=== PATIENT | male | born 1970 | race Caucasian/White ===

== ENCOUNTER 2024-01-02 16:49 | Emergency (ER) | payer OTHER, SELFPAY ==
[2024-01-02 17:32] VITALS: BP 163/69; PULSE 83; RESP 16; TEMP 36.9; O2SAT 98; BMI 28.5
--- NOTE | 2024-01-02 18:11 | ED.WOUNDLAC ---
HPI - Wound/Laceration General Chief Complaint: Wound/Laceration Stated Complaint: left wrist laceration Time Seen by Provider: 01/02/24 17:53 Source: patient Mode of arrival: ambulatory History of Present Illness ED Provider: Martin JULES HPI narrative: 53-year-old male presents with laceration to left wrist status post cutting himself with a non powered proning saw. Teatanus UTD. No numbness, tingling fevers, chills. No other injuries sustained Related Data Previous Rx's ?Medication ?Instructions ?Recorded insulin aspart U-100 100 unit/mL 75 unit (0.75 mL) subcut .COMPLEX 05/26/20 subcutaneous solution (Novolog #70 mL U-100 Insulin aspart) simvastatin 20 mg tablet 20 mg PO DAILY #90 tabs 07/22/20 Allergies Allergy/AdvReac Type Severity Reaction Status Date / Time amoxicillin [AMOXICILLIN] Allergy Unknown HIVES Unverified 01/02/24 17:35 penicillin V Allergy Unknown hives Unverified 01/02/24 17:35 Review of Systems Review of Systems: Yes all other systems are reviewed and are negative [facility] Past Medical History Attestation statement: The following information was validated with the patient. Source: old records reviewed and nursing notes reviewed Medical History (Updated 01/02/24 @ 18:13 by MARY Poole) Type 1 diabetes mellitus without complications Social History Social History Do you have a plan to hurt others: No Plan Physical Exam Vital Signs: Vital Signs: Last Vital Signs Temp 98.5 F 01/02/24 17:32 Pulse 83 01/02/24 17:32 Resp 16 01/02/24 17:32 BP 163/69 H 01/02/24 17:32 Pulse Ox 98 01/02/24 17:32 O2 Del Method Room Air 01/02/24 17:32 BMI result Body Mass Index 28.5 Vital signs stable Appearance: Alert.? Oriented X3.? No acute distress.? Head: Normocephalic, atraumatic, no step-offs or deformities Eyes: Pupils equal, round and reactive to light.? CVS: ? Pulses normal.? Respiratory: No respiratory distress.? Abdomen: Soft and nontender.? Skin: Skin warm and dry.? Normal skin color.? Normal skin turgor.?+ 1 cm linear laceration overlying the ventral aspect of left wrist. Extremities: No lower extremity edema.? No calf ttp. 5/5 strength to bilateral upper and lower extremities Neuro: Oriented X 3.? No motor deficit.? No sensory deficit. CN 2-12 intact Course Reevaluation(s) Reevaluation #1: closed w/ dermabond w/o issues. Educated patient on diagnosis and treatment plan, answered all question, patient verbalizes understanding. At this time patient will be discharged home, advised to return with new or worsening symptoms. Educated on worrisome signs and symptoms and when to return. At this time I feel comfortable discharge home. Medical Decision Making Medical Decision Making MDM Narrative: 53-year-old male presents with accidental laceration to left wrist got it with a non powered pruning saw Physical exam ?+ 1 cm linear laceration overlying the ventral aspect of left wrist. History and physical exam concerning for simple laceration. No signs of arterial involvement, ligamentous injury, fracture dislocation Plan repair with glue, Boostrix Educated patient on diagnosis and treatment plan, answered all question, patient verbalizes understanding. At this time patient will be discharged home, advised to return with new or worsening symptoms. Educated on worrisome signs and symptoms and when to return. At this time I feel comfortable discharge home. Differential Diagnosis Differential Diagnoses: The differential diagnosis associated with the presentation includes History and physical exam concerning for simple laceration. No signs of arterial involvement, ligamentous injury, fracture dislocation Admission/Observation Consideration of admission/observation: Escalation of care including admission/observation considered unlikley Chronic Conditions Patient?s care impacted by: Diabetes Critical Care Time Critical Care Time Critical Care Time: No Discharge Plan Discharge Clinical Impression: Laceration Patient Disposition: Home, Self-Care Additional Instructions: Take your medications as prescribed. If you were prescribed antibiotics today, it is important that you take your medication to their entirety, do not skip any doses, do not finish them early. Follow-up with your primary care provider this week. Return to the emergency department with new or worsening symptoms. Such as fevers, chills, chest pain, shortness of breath, nausea, vomiting, dizziness, headache, vision changes, lethargy In case of emergency call 911 Return for any new or worsening symptoms such as redness, discharge from the site, pain, drainage Prescriptions: No Action insulin aspart U-100 [Novolog U-100 Insulin aspart] 100 unit/mL solution 75 unit subcut .COMPLEX Qty: 70 0RF Rx Instructions: 75 units subcut daily via pump; simvastatin 20 mg tablet 20 mg PO DAILY Qty: 90 1RF Referrals: Physician,Unknown J [Primary Care Provider] - 2 days Stand Alone Forms: Work/School Release Print Language: Pashto
[2024-01-02 18:27] VITALS: BP 163/69; PULSE 83; RESP 16; TEMP 36.9; O2SAT 98
--- OUTSIDE RECORDS SUMMARY | 2024-01-02 18:32 | XMS_ITS | Continuity of Care Document ---
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 Refills 0, Maintenance, 11/01/17 18:21:25 EDT, Aerosol, Route to Pharmacy Electronically, [id number], [facility]/pharmacy #[id number], Compound Start Date: 11/01/17 Status: Ordered Azithromycin 5 Day Dose Pack 250 mg oral tablet 1 pack/packet, By Mouth, Once, # 6 tablet, 0 Refills, Soft Stop, 11/01/17 18:21:30 EDT, Tablet Start Date: 11/01/17 Status: Ordered NovoLOG 100 units/mL subcutaneous solution = 20 units, Subcutaneous Injection, 2 times a day, # 10 mL, 0 Refills, Maintenance, 11/01/17 17:56:44 EDT, Solution Start Date: 11/01/17 Status: Ordered simvastatin 10 mg oral tablet 10 mg, 1, tablet, By Mouth, Daily at bedtime, # 30 tablet, Refills 0, Maintenance, 11/01/17 17:56:53 EDT Start Date: 11/01/17 Status: Ordered Patient Care team information Care Team Personnel Name: Hermilo Troy MD Position: Reference Physician Member Role: PCP Address: Address: [facility] [place] [address]- Care Team Related Persons Name: RAIN HAHN
--- OUTSIDE RECORDS SUMMARY | 2024-01-02 18:32 | XMS_ITS | Continuity of Care Document ---
Author Organization [facility] Bernard Tipton Dwayne lt Address [address] [place] [address]- Care Team Providers Care Chief Deputy Sheriff Name Role Phone Alfred Connors Primary Care Physi kyrie [place] [facility] [place](s): 01/14/23 - 01/21/23 [facility] Adult [address] [place] [address]- Encounter Diagnosis Encounter for annual physical exam(Discharge Diagnosis) - 01/14/23 Type 1 diabetes mellitus with hypercholesterolemia(Discharge Diagnosis) - 01/14/23 Type 1 diabetes, HbA1c goal < 7%(Discharge Diagnosis) - 01/14/23 Hypertension(Discharge Diagnosis) - 01/14/23 Hip pain, bilateral(Discharge Diagnosis) - 01/14/23 Urinary problem(Discharge Diagnosis) - 01/14/23 Obese class I(Discharge Diagnosis) - 01/14/23 Erectile dysfunction due to diabetes mellitus(Discharge Diagnosis) - 01/14/23 Attending Physician: Alfred Connors Allergies, Adverse Reactions, Alerts Substance Reaction Severity Status amoxicillin 1 Active penicillin Active 1Broke out in hives Immunizations Given and Recorded Vaccine Date Status Refusal Reason influenza virus vaccine, inactivated 01/30/22 Constantine rded influenza virus vaccine, inactivated 02/15/18 Constantine rded influenza virus vaccine, inactivated 01/17/16 Constantine rded tetanus-diphtheria toxoids (Td) 11/28/20 Recorded pneumococcal 23-valent vaccine 11/28/20 Recorded SARS-CoV-2 (COVID-19) mRNA-1273 vaccine 10/27/20 R ecorded SARS-CoV-2 (COVID-19) mRNA-1273 vaccine 09/29/20 R ecorded Medications Fish Oil 1200 mg oral capsule 1 capsule = 1,200 mg, By Mouth, 3 times a day, 0 Refills, Maintenance, 12/12/22 9:34:00 EDT, Partial fill upon patient request if the prescription is for a schedule II opioid drug. Start Date: 12/12/22 Status: Ordered glucosamine 750 mg oral tablet 2 tablet = 1,500 mg, By Mouth, Daily, 0 Refills, Maintenance, 12/12/22 9:34:00 EDT, Partial fill upon patient request if the prescription is for a schedule II opioid drug. Start Date: 12/12/22 Status: Ordered lisinopril 10 mg oral tablet 10 mg, 1, tablet, By Mouth, Daily, # 30 tablet, Refills 0, Maintenance, 01/14/23 8:14:00 EDT, Partial fill upon patient request if the prescription is for a schedule II opioid drug. Start Date: 01/14/23 Status: Ordered Men's Multi Gummies See Instructions, mens 50+ vit, 0 Refills, Maintenance, 12/12/22 9:34:00 EDT, Partial fill upon patient request if the prescription is for a schedule II opioid drug. Start Date: 12/12/22 Status: Ordered NovoLog Inj See Instructions, Subcutaneous Infusion 3 times a day before meals, 0 Refills, Maintenance, 01/14/23 12:32:00 EDT, Partial fill upon patient request if the prescription is for a schedule II opioid drug. Start Date: 01/14/23 Status: Ordered Saw [place] 450 mg oral capsule See Instructions, Take 1 capsule by mouth daily for urinary symptoms., # 1 capsule, 0 Refills, Maintenance, 01/14/23 9:19:00 EDT, Partial fill upon patient request if the prescription is for a schedule II opioid drug. Start Date: 01/14/23 Status: Ordered sildenafil 25 mg oral tablet 1 tablet = 25 mg, By Mouth, Daily, 1 hour before sexual activity, # 15 tablet, 3 Refills, Maintenance, 01/14/23 9:19:00 EDT, Tablet, Partial fill upon patient request if the prescription is for a schedule II opioid drug. Start Date: 01/14/23 Status: Ordered simvastatin 20 mg oral tablet 20 mg, 1, tablet, By Mouth, Daily at bedtime, # 90 tablet, Refills 0, Tot. Refills 0, Maintenance, 01/14/23 9:22:00 EDT, Do Not Route, Partial fill upon patient request if the prescription is for a schedule II opioid drug. Start Date: 01/14/23 Status: Ordered Vitamin D 48075 iu oral capsule 50,000 International_Units, By Mouth, Daily, Refills 0, Maintenance, 12/12/22 9:35:00 EDT, Partial fill upon patient request if the prescription is for a schedule II opioid drug. Start Date: 12/12/22 Status: Ordered Problem List Condition Confirmation Course Effective Dates Status Health Status Informant Urinary problem Confirmed Active Hypertension Confirmed Active Obese class I Confirmed Active Type 1 diabetes, HbA1c goal < 7% Confirmed Active Type 1 diabetes mellitus with hypercholesterolemia Confirmed Active Diagnosis Diagnosis Type Effective Dates Health Status Clinical Service Informant Encounter for annual physical exam Discharge Diagnosis 01/14/23 Type 1 diabetes mellitus with hypercholesterolemia Discharge Diagnosis 01/14/23 Type 1 diabetes, HbA1c goal < 7% Discharge Diagnosis 01/14/23 Hypertension Discharge Diagnosis 01/14/23 Hip pain, bilateral Discharge Diagnosis 01/14/23 Urinary problem Discharge Diagnosis 01/14/23 Obese class I Discharge Diagnosis 01/14/23 Erectile dysfunction due to diabetes mellitus Discharge Diagnosis 01/14/23 Vital Signs Most recent to oldest [Reference Range]: 1 Height 180 cm (01/14/23 8:03 AM) Weight 99.6 kg (01/14/23 8:03 AM) Oxygen Saturation [94-100 %] 98 % (01/14/23 8:03 AM) Pulse Rate [55-90 bpm] 71 bpm (01/14/23 8:03 AM) Body Mass Index [18.5-24.99 kg/m2] 30.74 kg/m2 *>HHI* (01/14/23 8:03 AM) Blood Pressure [90-138/55-84 mm Hg] 127/ 86mm Hg (01/14/23 8:03 AM) Blood pressure sites Arm, right (01/14/23 8:03 AM) Weight Obtained Via Standing scale (01/14/23 8:03 AM) Social History Social History Type Response Smoking Status Never (less than 100 in lifetime) entered on: 12/12/22 Sex Note * Ofelia Purvis: PERFORM, SIGN, VERIFY Event Display: Patient Education/Instruction Authored Date: [id number] [facility] *PEYMAN Klein Clinical Summary Name VAISHALI HAHN Age 52 Years 1970 PCP Alfred Connors PCP Visit Date 01/14/2023 07:58:00 Additional Instructions: Scheduled Appointments?? Future Appointments ?No Future Appointments Scheduled Follow-Up Instructions ?? With: Address: When: Alfred Connors Within 6 months Comments: routine f/u Diagnosis Pain in right hip; Type 1 diabetes mellitus without complications; Essential (primary) hypertension; Encounter for general adult medical examination without abnormal findings; Type 1 diabetes mellitus with other specified complication Medications: Please continue your medications until treatment is completed or stopped by your provider. Discuss any questions related to medications with your provider. Medications to Continue with No Changes These medications were not printed or sent to your pharmacy Ergocalciferol (Vitamin D 64659 iu oral capsule) 50,000 International Unit Oral Daily. Next Dose: Glucosamine (glucosamine 750 mg oral tablet) 2 tab(s) Oral Daily. Next Dose: Lisinopril (lisinopril 10 mg oral tablet) 1 tab(s) Oral Daily. Next Dose: Multivitamin With Minerals (Men's Multi Gummies) mens 50+ vit. Next Dose: [place]-3 Polyunsaturated Fatty Acids (Fish Oil 1200 mg oral capsule) 1 capsule Oral 3 times a day. Next Dose: Simvastatin (simvastatin 20 mg oral tablet) 1 tab(s) Oral Daily at Bedtime. Next Dose: Allergy Info:?? penicillin; amoxicillin Medications Given This Visit Future Orders ?Microalbumin Urine? Order Date:01/14/23?- Complete on or after?01/14/23 ?Lipid Panel? Order Date:03/15/23?- Complete on or after?03/15/23 Vital Signs Height 180 cm Weight 99.6 kg BMI 30.74 kg/m2 Blood Pressure 127 mm Hg/86 mm Hg Temperature Pulse Rate 71 bpm Respiratory Rate 02 Sat Mode of Delivery 98 %/ You can now view a summary of your hospital visit from the comfort of your home through a free online portal called [employer]. [employer] is a website that allows you to securely view your medical information including discharge summary, medications and follow-up visits. ??You can alsosend a secure electronic message to your doctor???s office to request appointments, renew medications or just ask a question. You can enroll at [email or web address] or register during your next office visit. Disclaimer:?? The information provided is of a general nature and is intended to be used in conjunction with the recommendations and advice of your health care practitioner. ??Every effort has been made to ensure that the information provided is accurate and complete at the time it is provided to you however, as your needs change, or, as new ??information becomes available, different or additional instructions may be required. If you have questions, please consult with your primary care provider or pharmacist, as appropriate. ??This information is not intended to serve as substitution for assessment and evaluation by a qualified health care provider. If you do not have a primary care provider, you may find a [facility] provider by calling [facility] [employer] Link at [phone]. [facility], in keeping with [facility] guidance, no longer requires face masks for staff, patientsor visitors in most situations. Similar to time spent indoors at other locations, there is the chance that you were exposed to respiratory viruses during your time with us (such as flu or COVID-19).? If you develop symptoms concerning for a viral respiratory infection, please seek testing (and treatment if indicated) from your medical provider or home test kit. For information about the plan of care including goals and instructions for your diagnosis, please see the patient education orders section of this document. Patient Education Materials?? The content of this educational material or handout may have been modified, supplemented, or adapted from its original content and format to support your individualized medical care. Getting a Flu Vaccination The flu (influenza) is caused by a virus that is easily spread. A flu vaccine is your best chance to avoid the flu. The vaccine is given in the form of a shot (injection) or a nasal spray. It???s best to get vaccinated each year when the flu vaccine is available in your area. This can be done at your health care provider???s office or a health clinic. Drugstores, senior centers, and workplaces often offer flu vaccinations, too. If you want to know when the vaccine is available or if you have questions about getting vaccinated, ask your health care provider. Flu facts ??? The flu vaccine will not give you the flu. ??? The flu is caused by a virus. It can???t be treated with antibiotics. ??? The flu can be life-threatening, especially for people in high-risk groups. ??? Influenza is not the same as ???stomach flu,?? the 24-hour bug that causes vomiting and diarrhea. This is most likely due to a GI (gastrointestinal) infection???not the flu. Flu symptoms Flu symptoms tend to come on quickly. Fever, headache, fatigue, cough, sore throat, runny nose, andmuscle aches are symptoms of the flu. Children may have upset stomach or vomiting, but adults usually don???t. Some symptoms, such as fatigue and cough, can last a few weeks. How a flu vaccine protects you There are many strains (types) of flu viruses. Medical experts predict which??strains are most likely to make people sick each year. Flu vaccines??are made from these strains. With the shot, inactivated (???killed?? ) flu viruses are injected into your body. With the nasal spray, live and weakened viruses are sprayed into your nose. The viruses in both vaccines cannot make you sick. But they do prompt the body to make antibodies to fight these flu strains. If you???re exposed to the same strains later in the flu season, the antibodies will fight off the virus. Your health care provider can tell you which type of flu vaccine is right for you. Who should get the flu vaccination? The Centers for Disease Control and Prevention (CDC) recommends that infants over the age of 6 months and all children and adults should get a flu shot every year. Some people are at an increased risk of developing serious complications from the flu. It's extremely important that these people get the vaccine. They include those with: ??? Long-term heart and lung conditions ??? Other serious medical conditions: ??? Endocrine disorders, like diabetes ??? Kidney or liver disorders ??? Weak immune system from disease or medical treatment, for example those with HIV or AIDS or those taking long-term steroids or medications to treat cancer ??? Blood disorders, such as sickle cell disease It is also very important that others that have an increased risk of being exposed to the flu or are around people with increased risk of complications get the vaccine. They are: ??? Health care providers and other staff that provide care in hospitals, nursing homes, home health, and other facilities ??? Household members, including children of people in high-risk groups Types of flu vaccines The flu vaccine is available as a shot and as a nasal spray. Your health care provider will recommend the vaccine that is best for you. ??? The shot is available in a few different forms. There is a high-dose vaccine for those over age65 and a vaccine for those with egg allergies. It's safe for most people. Talk with your provider if you have had: ??? A severe allergic reaction to a previous flu vaccine ??? Guillain-barre syndrome (a severe paralyzing condition) ??? The nasal spray is recommended for people from 2 to 49 years of age. It should not be given to adults who: ??? Are ??? Have weak immune systems ??? Have egg allergies ??? Will be in close contact with someone with a weak immune system ??? Have taken antiviral medication in the past 2 days ?? [id number] [employer]. [address] [place] [address], [place] [address]. All rights reserved. This information is not intended as a substitute for professional medical care. Always follow your healthcare professional's instructions. 4 Steps for Eating Healthier Changing the way you eat can improve your health. It can lower your cholesterol and blood pressure,and help you stay at a healthy weight. Your diet doesn???t have to be bland and boring to be healthy. Just watch your calories and follow these steps: 1. Eat fewer unhealthy fats ??? Choose more fish and lean meats instead of fatty cuts of meat. ??? Skip butter and lard, and use less margarine. ??? Pass on foods that have palm, coconut, or hydrogenated oils. ??? Eat fewer high-fat dairy foods like cheese, ice cream, and whole milk. ??? Get a heart-healthy cookbook and try some low-fat recipes. 2.??Go light on salt ??? Keep the saltshaker off the table. ??? Limit high-salt ingredients, such as soy sauce, bouillon, and garlic salt. ??? Instead of adding salt when cooking, season your food with herbs and flavorings. Try lemon, garlic, and onion. ??? Limit convenience foods, such as boxed or canned foods and restaurant food. ??? Read food labels and choose lower-sodium options. 3. Limit sugar ??? Pause before you add sugars to pancakes, cereal, coffee, or tea. This includes white and brown table sugar, syrup, honey, and molasses. Cut your usual amount by half. ??? Use non-sugar sweeteners. Stevia, aspartame, and sucralose can satisfy a sweet tooth without adding calories. ??? Swap out sugar-filled soda and other drinks. Buy sugar-free or low-calorie beverages. Remember water is always the best choice. ??? Read labels and choose foods with less added sugar. Keep in mind that dairy foods and foods with fruit will have some natural sugar. ??? Cut the sugar in recipes by 1/3 to 1/2. Boost the flavor with extracts like almond, vanilla, ororange. Or add spices such as cinnamon or nutmeg. 4. Eat??more fiber ??? Eat fresh fruits and vegetables every day. ??? Boost your diet with whole grains. Go for oats, whole-grain rice, and bran. ??? Add beans and lentils to your meals. ??? Drink more water to match your fiber increase. This is to help prevent constipation. ?? [id number] [employer]. [address] [place] [address], [place] [address]. All rights reserved. This information is not intended as a substitute for professional medical care. Always follow your healthcare professional's instructions. Prevention Guidelines, Men Ages 50 to 64 Screening tests and vaccines are an important part of managing your health. Health counseling is essential, too. Below are guidelines for these, for men ages 50 to 64. Talk with your healthcare provider to make sure you???re up-to-date on what you need. Screening Who needs it How often Alcohol misuse All men in this age group At routine exams Blood pressure All men in this age group Every 2 years if your blood pressure is less than 120/80 mm Hg; yearly if your systolic blood pressure is 120 to 139 mm Hg, or your diastolic blood pressure reading is 80 to 89 mm Hg Colorectal cancer All men in this age group Flexible sigmoidoscopy every 5 years, or colonoscopy every 10 years, or double- contrast barium enema every 5 years; yearly fecal occult blood test or fecal immunochemical test; or a stool DNA test asoften as your healthcare provider advises; talk with your healthcare provider about which tests arebest for you Depression All men in this age group At routine exams Type 2 diabetes or prediabetes All adults beginning at age 45 and adults without symptoms at any age who are overweight or obese and have 1 or more other risk factors for diabetes At least every 3 years Hepatitis C Men at increased risk for infection ??? talk with your healthcare provider At routine exams High cholesterol or triglycerides All men in this age group At least every 5 years HIV Men at increased risk for infection ??? talk with your healthcare provider At routine exams Lung cancer Adults age 55 to 80 who have smoked Yearly screening in smokers with 30 pack-year history of smoking or who quit within 15 years Obesity All men in this age group At routine exams Prostate cancer Starting at age 45, talk to healthcare provider about risks and benefits of digital rectal exam (PANDA) and prostate-specific antigen (PSA) screening1 At routine exams Syphilis Men at increased risk for infection ??? talk with your healthcare provider At routine exams Tuberculosis Men at increased risk for infection ??? talk with your healthcare provider Ask your healthcare provider Vision All men in this age group Ask your healthcare provider Vaccine Who needs it How often Chickenpox (varicella) All men in this age group who have no record of this infection or vaccine 2 doses; second dose should be given at least 4 weeks after the first dose Hepatitis A Men at increased risk for infection ??? talk with your healthcare provider 2 doses given at least 6 months apart Hepatitis B Men at increased risk for infection ??? talk with your healthcare provider 3 doses over 6 months; second dose should be given 1 month after the first dose; the third dose should be given at least 2 months after the second dose and at least 4 months after the first dose Haemophilus influenzae??Type B (HIB) Men at increased risk for infection ??? talk with your healthcare provider 1 to 3 doses Influenza (flu) All men in this age group Once a year Measles, mumps, rubella (MMR) Men in this age group through their late 50s who have no record of these infections or vaccines 1 or 2 dose; ask your healthcare provider Meningococcal Men at increased risk for infection ??? talk with your healthcare provider 1 or more doses Pneumococcal conjugate vaccine (PCV13)??and pneumococcal polysaccharide??vaccine??(PPSV23) Men at increased risk for infection ??? talk with your healthcare provider PCV13: 1 dose ages 19 to 65 (protects against 13 types of pneumococcal bacteria) ?? PPSV23: 1 to??2doses through age 64, or 1 dose at 65 or older (protects against 23 types of pneumococcal bacteria) Tetanus/diphtheria/ pertussis (Td/Tdap) booster All men in this age group Td every 10 years, or a one-time dose of Tdap instead of a Td booster after age 18, then Td every 10 years Zoster All men ages 60 and older 1 dose Counseling Who needs it How often Diet and exercise Men who are overweight or obese When diagnosed, and then at routine exams Sexually transmitted infection prevention Men at increased risk for infection ??? talk with your healthcare provider At routine exams Use of daily aspirin Men in this age group at risk for cardiovascular health problems At routine exams Use of tobacco and the health affects it can cause All men in this age group Every visit [address] [place] [address] [facility] ?? [phone] [employer]. [address] [place] [address]. All rights reserved. This information is not intended as a substitute for professional medical care. Always follow your healthcare professional's instructions. Patient Care team information Care Team Personnel Name: Alfred Connors Position: [facility] PCO Associate Professional Member Role: PCP Address: Address: [address] [facility] [place] [address]- Care Team Related Persons Name: RAIN HAHN
--- OUTSIDE RECORDS SUMMARY | 2024-01-02 18:32 | XMS_ITS | Continuity of Care Document ---
Author Organization [facility] Saeed Dwayne lt Address [address] [place] [address]- Care Team Providers Care Gunner'S Mate G Name Role Phone Alfred Connors Primary Care Physi kyrie [place] [facility] [place] 03/03/23 [facility] Adult [address] [place] [address]- Encounter Diagnosis Erectile dysfunction due to diabetes mellitus(Discharge Diagnosis) - 02/04/23 Allergies, Adverse Reactions, Alerts Substance Reaction Severity [...] mg, 1, tablet, By Mouth, Daily, # 90 tablet, Refills 1, Tot. Refills 1, Maintenance, 02/04/23 16:36:00 EDT, Route to Pharmacy Electronically, [facility]/pharmacy #[id number], Partial fill upon patient request if the prescription is for a schedule II opioid drug... Start Date: 02/04/23 Status: Ordered Men's Multi Gummies See Instructions, [...] drug. Start Date: 01/14/23 Status: Ordered Saw [place] 450 mg oral capsule See Instructions, Take [...] activity, # 15 tablet, 3 Refills, Maintenance, 02/04/23 16:36:00 EDT, Tablet, [facility]/pharmacy #[id number], Partial fill upon patient request if the prescription is for a schedule II opioid drug., 180, cm,... Start Date: 02/04/23 Status: Ordered simvastatin 20 mg oral tablet 20 mg, 1, tablet, By Mouth, Daily at bedtime, # 90 tablet, Refills 1, Tot. Refills 1, Maintenance, 02/04/23 16:36:00 EDT, Route to Pharmacy Electronically, [facility]/pharmacy #[id number], Partial fill upon patient request if the prescription is for a schedule II... Start Date: 02/04/23 Status: Ordered Vitamin D 70102 iu oral capsule 50,000 International_Units, By Mouth, [...] Effective Dates Health Status Clinical Service Informant Erectile dysfunction due to diabetes mellitus Discharge Diagnosis 02/04/23 Non-Specified Social History Social History Type Response Smoking Status Never (less than 100 in lifetime) entered on: 12/12/22 Sex Patient Care team information Care Team Personnel Name: Alfred Connors Position: [facility] PCO Associate Professional Member Role: PCP Address: Address: [address] [place] [address] [place], [place] [address] Care Team Related Persons Name: RAIN HAHN
--- OUTSIDE RECORDS SUMMARY | 2024-01-02 18:32 | XMS_ITS | Continuity of Care Document ---
Author Organization [facility] Brenard Tipton Dwayne Address [address] [place] [address]- Care Team Providers Care Oxyhydrogen Welder Name Role Phone Jericho Goyal DO Primary Care Physician [phone] Encounter [facility] Date(s): 08/28/23 - 09/04/23 [facility] Bernard Tipton Adult [address] [place] [address]- Encounter Diagnosis Essential hypertension(Discharge Diagnosis) - 08/27/23 Type 1 diabetes mellitus with hypercholesterolemia(Discharge Diagnosis) - 08/27/23 Type 1 diabetes, HbA1c goal < 7%(Discharge Diagnosis) - 08/27/23 BPH (benign prostatic hyperplasia)(Discharge Diagnosis) - 08/27/23 Obese class I(Discharge Diagnosis) - 08/27/23 Paresthesia(Discharge Diagnosis) - 08/28/23 Attending Physician: Jericho Goyal DO Allergies, Adverse Reactions, Alerts Substance Reaction Severity Status amoxicillin 1 Active penicillin Active 1Broke out in hives Immunizations Given and Recorded Vaccine Date Status Refusal Reason pneumococcal 20-valent conjugate vaccine 1 08/28/23 Given influenza virus vaccine, inactivated 01/30/22 Constantine rded influenza virus vaccine, inactivated 02/15/18 Constantine rded influenza virus vaccine, inactivated 01/17/16 Constantine rded tetanus-diphtheria toxoids (Td) 11/28/20 Recorded pneumococcal 23-valent vaccine 11/28/20 Recorded SARS-CoV-2 (COVID-19) mRNA-1273 vaccine 10/27/20 R ecorded SARS-CoV-2 (COVID-19) mRNA-1273 vaccine 09/29/20 R ecorded 1Result Comment: PCV20 - [facility]# [id number] Medications Fish Oil 1200 mg oral capsule [...] 02/04/23 16:36:00 EDT, Route to Pharmacy Electronically, [facility]/pharmacy #[id number], Partial fill upon patient request [...] drug. Start Date: 01/14/23 Status: Ordered Saw Webster 450 mg oral capsule See Instructions, Take [...] 3 Refills, Maintenance, 02/04/23 16:36:00 EDT, Tablet, [facility]/pharmacy #[id number], Partial fill upon patient request if the prescription is for a schedule II opioid drug., 180, cm,... Start Date: 02/04/23 Status: Ordered simvastatin 20 mg oral tablet 20 mg, 1, tablet, By Mouth, Daily at bedtime, # 90 tablet, Refills 1, Tot. Refills 1, Maintenance, 02/04/23 16:36:00 EDT, Route to Pharmacy Electronically, [facility]/pharmacy #[id number], Partial fill upon patient request if the prescription is for a schedule II... Start Date: 02/04/23 Status: Ordered Vitamin D 76460 iu oral capsule 50,000 International_Units, By Mouth, Daily, Refills 0, Maintenance, 12/12/22 9:35:00 EDT, Partial fill upon patient request if the prescription is for a schedule II opioid drug. Start Date: 12/12/22 Status: Ordered Problem List Condition Confirmation Course Effective Dates Status Health Status Informant BPH (benign prostatic hyperplasia) Confirmed Active Essential hypertension Confirmed Active Obese class I Confirmed Active Paresthesia Confirmed Active Type 1 diabetes, HbA1c goal < 7% Confirmed Active Type 1 diabetes mellitus with hypercholesterolemia Confirmed Active Diagnosis Diagnosis Type Effective Dates Health Status Clinical Service Informant Essential hypertension Discharge Diagnosis 08/27/23 Type 1 diabetes mellitus with hypercholesterolemia Discharge Diagnosis 08/27/23 Type 1 diabetes, HbA1c goal < 7% Discharge Diagnosis 08/27/23 BPH (benign prostatic hyperplasia) Discharge Diagnosis 08/27/23 Obese class I Discharge Diagnosis 08/27/23 Paresthesia Discharge Diagnosis 08/28/23 Procedures Procedure Date Related Diagnosis Body Site Status Vasectomy Completed Vital Signs Most recent to oldest [Reference Range]: 1 2 Height 180 cm (08/28/23 10:02 AM) 180 cm (08/28/23 9:40 AM) Weight 100.1 kg (08/28/23 9:40 AM) Oxygen Saturation [94-100 %] 98 % (08/28/23 9:40 AM) Pulse Rate [55-90 bpm] 65 bpm (08/28/23 9:40 AM) Body Mass Index [18.5-24.99 kg/m2] 30.9 kg/m2 *>HHI* (08/28/23 9:40 AM) Blood Pressure [90-138/55-84 mm Hg] 134/ 82mm Hg (08/28/23 10:02 AM) 124/89mm Hg (08/28/23 9:40 AM) Respiratory Rate [16-30 br/min] 20 br/mi n (08/28/23 9:40 AM) Temperature [96.8-100.4 DegF] 97.8 DegF (08/28/23 9:40 AM) Mode of Delivery (Oxygen) Room air (08/28/23 9:40 AM) Blood pressure sites Arm, right (08/28/23 10:02 AM) Arm, left (08/28/23 9:40 AM) Temperature Route Oral (08/28/23 9:40 AM) Weight Obtained Via Standing scale (08/28/23 9:40 AM) Social History Social History Type Response Smoking Status Never (less than 100 in lifetime) entered on: 12/12/22 Sex Note * Hyun Ofelia: PERFORM, SIGN, VERIFY Event Display: Patient Education/Instruction Authored Date: [id number] [facility] *BMP So Saeed Klein Clinical Summary Name VAISHALI HAHN Age 53 Years 1970 PCP Jericho Goyal DO PCP Visit Date 08/28/2023 09:30:00 Patient Instructions BP not at goal continue current??medication?check BP at home and bring to next visit Continue to work with diet and exercise and Dr. Juarez followup foot tingling?worsens changes or fails to resolve with changin??boots?? recommend?? updated COVID-vaccine at your local pharmacy Additional Instructions: Scheduled Appointments?? Future Appointments ?No Future Appointments Scheduled Follow-Up Instructions ?? With: Address: When: 6 months CPE Comments: HTN DM type 1 Diagnosis Type 1 diabetes mellitus with other specified complication; Paresthesia of skin; Benign prostatic hyperplasia without lower urinary tract symptoms; Type 1 diabetes mellitus without complications; Essential (primary) hypertension; Body mass index [BMI] 30.0-30.9, adult Medications: Please continue your medications until treatment is completed or stopped by your provider. Discuss any questions related to medications with your provider. Medications to Continue with No Changes These medications were not printed or sent to your pharmacy Ergocalciferol (Vitamin D 93367 iu oral capsule) 50,000 International Unit Oral Daily. Next Dose: Glucosamine (glucosamine 750 mg oral tablet) 2 tab(s) Oral Daily. Next Dose: Insulin Aspart (NovoLog Inj) Subcutaneous Infusion 3 times a day before meals. Next Dose: Lisinopril (lisinopril 10 mg oral tablet) 1 tab(s) Oral Daily. Refills: 1. Next Dose: Multivitamin With Minerals (Men's Multi Gummies) mens 50+ vit. Next Dose: [place]-3 Polyunsaturated Fatty Acids (Fish Oil 1200 mg oral capsule) 1 capsule Oral 3 times a day. Next Dose: Saw Webster (Saw Webster 450 mg oral capsule) Take 1 capsule by mouth daily for urinary symptoms.. Refills: 0. Next Dose: Sildenafil (sildenafil 25 mg oral tablet) 1 tab(s) Oral Daily. 1 hour before sexual activity. Refills: 3. Next Dose: Simvastatin (simvastatin 20 mg oral tablet) 1 tab(s) Oral Daily at Bedtime. Refills: 1. Next Dose: Allergy Info:?? penicillin; amoxicillin Medications Given This Visit Future Orders ?No future orders Future Orders ?No future orders Vital Signs Height 180 cm Weight 100.1 kg BMI 30.9 kg/m2 Blood Pressure 134 mm Hg/82 mm Hg Temperature 97.8 DegF Pulse Rate 65 bpm Respiratory Rate 20 br/min 02 Sat Mode of Delivery 98 %/Room air You can now view a summary of your hospital visit from the comfort of your home through a free online portal called [employer]. [employer] is a website that allows you to securely view your medical information including discharge summary, medications and follow-up visits. ??You can alsosend a secure electronic message to your doctor???s office to request appointments, renew medications or just ask a question. You can enroll at [email or web address] or register during your next office visit. [...] primary care provider, you may find a [facility] provider by calling [facility] [employer] at [phone]. [facility], in keeping with [facility] guidance, no longer requires face masks [...] format to support your individualized medical care. Patient Care team information Care Team Personnel Name: Jericho Goyal DO Position: S Physician - Primary Care Member Role: PCP Address: Address: [address] [place] [id number]- Care Team Related Persons Name: RAIN HAHN
--- OUTSIDE RECORDS SUMMARY | 2024-01-02 18:32 | XMS_ITS | Continuity of Care Document ---
Author Organization [facility] Saeed Dwayne lt Address [address] [place] [address]- Care Team Providers Care Counter Intelligence Agent Name Role Phone Alfred Connors Primary Care Physi [facility] Encounter [facility] Date(s): 12/12/22 - 12/19/22 [facility] Adult [address] [place] [address]- Encounter Diagnosis Encounter to establish care with new doctor(Discharge Diagnosis) - 12/12/22 H/O neutropenia(Discharge Diagnosis) - 12/12/22 DM type 1 (diabetes mellitus, type 1)(Discharge Diagnosis) - 12/12/22 Type 1 diabetes mellitus with hypercholesterolemia(Discharge Diagnosis) - 12/12/22 Hip pain, bilateral(Discharge Diagnosis) - 12/12/22 Attending Physician: Alfred Connors Referring Physician: Louis Escobar MD Allergies, Adverse Reactions, Alerts Substance Reaction Severity [...] opioid drug. Start Date: 12/12/22 Status: Ordered Men's Multi Gummies See Instructions, mens 50+ vit, 0 Refills, Maintenance, 12/12/22 9:34:00 EDT, Partial fill upon patient request if the prescription is for a schedule II opioid drug. Start Date: 12/12/22 Status: Ordered Vitamin D 79035 iu oral capsule 50,000 International_Units, By Mouth, Daily, Refills 0, Maintenance, 12/12/22 9:35:00 EDT, Partial fill upon patient request if the prescription is for a schedule II opioid drug. Start Date: 12/12/22 Status: Ordered Problem List Condition Confirmation Course Effective Dates Status Health St atus Informant Obese class I Confirmed Active Diagnosis Diagnosis Type Effective Dates Health Status Clinical Service Informant Encounter to establish care with new doctor Discharge Diagnosis 12/12/22 H/O neutropenia Discharge Diagnosis 12/12/22 DM type 1 (diabetes mellitus, type 1) Discharge Diagnosis 12/12/22 Type 1 diabetes mellitus with hypercholesterolemia Discharge Diagnosis 12/12/22 Hip pain, bilateral Discharge Diagnosis 12/12/22 Vital Signs Most recent to oldest [Reference Range]: 1 Height 180 cm (12/12/22 9:21 AM) Weight 98.5 kg (12/12/22 9:21 AM) Oxygen Saturation [94-100 %] 98 % (12/12/22 9:21 AM) Pulse Rate [55-90 bpm] 65 bpm (12/12/22 9:21 AM) Body Mass Index [18.5-24.99 kg/m2] 30.4 kg/m2 *>HHI* (12/12/22 9:21 AM) Blood Pressure [90-138/55-84 mm Hg] 138/ 82mm Hg (12/12/22 9:21 AM) Temperature [96.8-100.4 DegF] 98 DegF (12/12/22 9:21 AM) Mode of Delivery (Oxygen) Room air (12/12/22 9:21 AM) Blood pressure sites Arm, left (12/12/22 9:21 AM) Temperature Route Oral (12/12/22 9:21 AM) Weight Obtained Via Standing scale (12/12/22 9:21 AM) Social History Social History Type Response Smoking Status Never (less than 100 in lifetime) entered on: 12/12/22 Sex Note * Hyun Ofelia: PERFORM, SIGN, VERIFY Event Display: Patient Education/Instruction Authored Date: [id number] [facility] *BMP So Saeed Klein Clinical Summary Name VAISHALI HAHN Age 52 Years 1970 PCP Alfred Connors PCP Visit Date 12/12/2022 09:02:00 Additional Instructions: Scheduled Appointments?? Future Appointments ?No Future Appointments Scheduled Follow-Up Instructions ?? With: Address: When: Alfred Connors Within 2 to 5 weeks Comments: PHY Diagnosis Type 2 diabetes mellitus without complications; Persons encountering health services in other specified circumstances; Type 2 diabetes mellitus with other specified complication; Personal history of diseases of the blood and blood- forming organs and certain disorders involving the immune mechanism Medications: Please continue your medications until treatment is completed or stopped by your provider. Discuss any questions related to medications with your provider. Medications to Continue with No Changes These medications were not printed or sent to your pharmacy Albuterol (albuterol CFC free 90 mcg/inh inhalation aerosol) 2 puff(s) Inhalation every 4 hours as needed Wheezing/Shortness of Breath. Refills: 0. Next Dose: Azithromycin (Azithromycin 5 Day Dose Pack 250 mg oral tablet) 1 pack/packet Oral once. Refills: 0. Next Dose: Durable Medical Equipment (Aerochamber) Use with albuterol inhaler.. Refills: 0. Next Dose: Ergocalciferol (Vitamin D 50780 iu oral capsule) 50,000 International Unit Oral Daily. Next Dose: Glucosamine (glucosamine 750 mg oral tablet) 2 tab(s) Oral Daily. Next Dose: Insulin Aspart (NovoLOG 100 units/mL subcutaneous solution) 20 unit(s) Subcutaneous Injection twicea day. Next Dose: Multivitamin With Minerals (Men's Multi Gummies) mens 50+ vit. Next Dose: [place]-3 Polyunsaturated Fatty Acids (Fish Oil 1200 mg oral capsule) 1 capsule Oral 3 times a day. Next Dose: Simvastatin (simvastatin 10 mg oral tablet) 1 tab(s) Oral Daily at Bedtime. Next Dose: Allergy Info:?? penicillin; amoxicillin Medications Given This Visit Future Orders ?CBC? Order Date:12/12/22?- Complete on or after?12/12/22 ?Comprehensive Metabolic Panel? Order Date:12/12/22?- Complete on or after?12/12/22 ?Vitamin D 25 Hydroxy Level? Order Date:12/12/22?- Complete on or after?12/12/22 ?Hemoglobin A1C w/ Estimated Glucose? Order Date:12/12/22?- Complete on or after?12/12/22 Vital Signs Height 180 cm Weight 98.5 kg BMI 30.4 kg/m2 Blood Pressure 138 mm Hg/82 mm Hg Temperature 98 DegF Pulse Rate 65 bpm Respiratory Rate 02 Sat Mode of Delivery 98 %/Room air You can now view a summary of your hospital visit from the comfort of your home through a free online portal called [employer]. [facility] is a website that allows you to securely view your medical information including discharge summary, medications and follow-up visits. ??You can alsosend a secure electronic message to your doctor???s office to request appointments, renew medications or just ask a question. You can enroll at [email or web address] or register during your next office visit. [...] primary care provider, you may find a [facility] provider by calling [facility] at [phone]. For information about the plan of care [...] Care Team Personnel Name: Alfred Connors Position: [facility] PCO Associate Professional Member Role: PCP Address: Address: [address] [place] [id number]- Care Team Related Persons Name: RAIN HAHN
--- OUTSIDE RECORDS SUMMARY | 2024-01-02 18:32 | XMS_ITS | Continuity of Care Document ---
Author Organization [facility] Saeed Dwayne lt Address [address] [place] [address]- Care Team Providers Care Hvac Field Service Technician Name Role Phone Alfred Connors Primary Care Physi kyrie Encounter [facility] Date(s): 01/22/23 - 02/21/23 [facility] Adult [address] [place] [address]- Allergies, Adverse Reactions, Alerts Substance Reaction Severity [...] 02/04/23 16:36:00 EDT, Route to Pharmacy Electronically, [facility]/pharmacy #[id number], Partial fill upon patient request if [...] drug. Start Date: 01/14/23 Status: Ordered Saw Milligan 450 mg oral capsule See Instructions, Take [...] 3 Refills, Maintenance, 02/04/23 16:36:00 EDT, Tablet, [facility]/pharmacy #[id number], Partial fill upon patient request if the prescription is for a schedule II opioid drug., 180, cm,... Start Date: 02/04/23 Status: Ordered simvastatin 20 mg oral tablet 20 mg, 1, tablet, By Mouth, Daily at bedtime, # 90 tablet, Refills 1, Tot. Refills 1, Maintenance, 02/04/23 16:36:00 EDT, Route to Pharmacy Electronically, [facility]/pharmacy #[id number], Partial fill upon patient request if the prescription is for a schedule II... Start Date: 02/04/23 Status: Ordered Vitamin D 34446 iu oral capsule 50,000 International_Units, By Mouth, [...] 1 diabetes mellitus with hypercholesterolemia Confirmed Active Social History Social History Type Response Smoking Status Never (less than 100 in lifetime) entered on: 12/12/22 Sex Patient Care team information Care Team Personnel Name: Alfred Connors Position: S PCO Associate Professional Member Role: PCP Address: Address: [address] [place] [address] Adult [place], [place] [address] Care Team Related Persons Name: RAIN HAHN
== END 2024-01-02 18:34 | disposition home or self-care (01) ==
LOC: HO.ED 18:30
PROVIDERS: Emergency Provider Emergency Medicine
DX: S61.512A Laceration without foreign body of left wrist, initial encounter (principal); W27.0XXA Contact with workbench tool, initial encounter; Y93.9 Activity, unspecified; Y92.9 Unspecified place or not applicable; Y99.9 Unspecified external cause status; E10.9 Type 1 diabetes mellitus without complications
CPT/HCPCS: 12001; 99282; 99284